=== PATIENT | female | born 1955 | race African-American/Black ===

== ENCOUNTER 2016-08-05 06:00 | Emergency (ER) | payer BC ==
[~2016-08-05 06:00] MED LIST: ASAB PO; AT25 PO; CEFT5 PO; GLUCOPHAGE1000 MG PO; LISINOPRIL40 MG PO; LORCET PO; MAX25 PO; MAXZIDE PO; MSCONT15 PO; MSCONTIN PO; NICODERM C7 MG/24 HR TOP; NORV10 PO; NORV5 PO; PRAVAC PO; PRIN20 PO; PROVHFA INH; RANITIDINE300 MG PO; SIMCOR1 TAB PO; SYMBICORT 80/4.1 INH INH; TAMIFLU PO; X5 PO; XANAX1 MG PO; ZANTAC300 MG PO; ZYPREXA7.5 MG PO; [UNRECOGNIZED DRUG - REMARK]
== END 2016-08-05 08:00 | disposition home or self-care (01) ==
LOC: ER 06:00
PROC: 0SS9XZZ Reposition Right Hip Joint, External Approach (ICD-10-PCS; principal; 2016-08-05)
DX: S73.004A Unspecified dislocation of right hip, initial encounter (principal); E11.9 Type 2 diabetes mellitus without complications; F32.9 Major depressive disorder, single episode, unspecified; I10 Essential (primary) hypertension; F17.200 Nicotine dependence, unspecified, uncomplicated; Z79.899 Other long term (current) drug therapy; Z79.84 Long term (current) use of oral hypoglycemic drugs; Z79.82 Long term (current) use of aspirin; X58.XXXA Exposure to other specified factors, initial encounter
CPT/HCPCS: 73501-RT; 73502-RT; 96374; 99284